=== PATIENT | male | born 1980 | race African-American/Black ===

== ENCOUNTER 2017-03-10 09:56 | Emergency (ER) | payer SELFPAY ==
[2017-03-10] MEDS ORDERED: Aspirin Low Dose CHEW TAB* 81 MG PO ONE (10:04)
[2017-03-10 10:34] LABS: Hematocrit 43 % (42-52); Hemoglobin 14.4 g/dl (14.0-18.0); Mean Corpuscular HGB Conc 33 g/dl (31-36); Mean Corpuscular Hemoglobin 30 pg (27-31); Mean Corpuscular Volume 90 fL (80-94); Mean Platelet Volume 8 um3 (7.4-10.4); Red Blood Count 4.83 10^6/ul (4.0-5.4); Red Cell Distribution Width 14 % (10.5-15); White Blood Count 10.9 10^3/ul (3.5-10.8)
--- NOTE | 2017-03-10 10:46 | ED ---
HPI Chest Pain - HPI Summary HPI Summary: Patient presents with left rib and flank pain that began last night. He is a heavy drinker and smoker and worries something is wrong with his "intestines". He had a GI bleed months ago and was treated for an ulcer with success by his PCP Dr. Calvo. He no longer has bloody stools. He is relatively pain free if he rests, but if he takes a deep breath, coughs or sits up from a supine position he feels the pain. He denies SOB, mike CP, WATSON, nausea, sweating or lightheadedness. He has not noticed blood in his urine or had urinary symptoms. - History of Current Complaint Chief Complaint: EDChestWallPain Time Seen by Provider: 03/10/17 10:04 Hx Obtained From: Patient Onset/Duration: Started Hours Ago, Atraumatic, Still Present Timing: Intermittent - when moving Initial Severity: Moderate Current Severity: Mild Pain Intensity: 2 Chest Pain Location: Left Lateral Chest Pain Radiates: No Character: Dull/Aching Aggravating Factor(s): Movement Alleviating Factor(s): Rest Associated Signs and Symptoms: Positive: Negative - Additional Pertinent History Primary Care Physician: [id number] - Allergy/Home Medications Allergies/Adverse Reactions: Allergies Allergy/AdvReac Type Severity Reaction Status Date / Time No Known Allergies Allergy Verified 10/13/13 12:12 PMH/Surg Hx/FS Hx/Imm Hx Endocrine/Hematology History: Denies: Hx Diabetes, Hx Thyroid Disease Cardiovascular History: Denies: Hx Hypertension Respiratory History: Denies: Hx Asthma, Hx Chronic Obstructive Pulmonary Disease (COPD) GI History: Denies: Hx Ulcer Psychiatric History: Reports: Hx of Violent Episodes Against Others, Hx Substance Abuse - alcohol Denies: Hx Eating Disorder Infectious Disease History: No Infectious Disease History: Denies: Hx Clostridium Difficile, Hx Hepatitis, Hx Human Immunodeficiency Virus (HIV), Hx of Known/Suspected MRSA, Hx Shingles, Hx Tuberculosis, Traveled Outside the [place] in Last 30 Days - Family History Known Family History: Positive: Hypertension, Other - Breast CA (mother) - Social History 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 Negative: Vomiting, Diarrhea, Nausea Positive: flank pain Positive: Myalgia All Other Systems Reviewed And Are Negative: Yes Physical Exam Triage Information Reviewed: Yes Vital Signs On Initial Exam: Initial Vitals Temp Pulse Resp BP Pulse Ox 97.4 F 98 20 159/109 98 03/10/17 09:58 03/10/17 09:58 03/10/17 09:58 03/10/17 09:58 03/10/17 09:58 Vital Signs Reviewed: Yes Appearance: Positive: Well-Appearing, No Pain Distress, Obese Skin: Positive: Warm, Skin Color Reflects Adequate Perfusion, Dry, Soft Head/Face: Positive: Normal Head/Face Inspection Eyes: Positive: EOMI, CINDY, Conjunctiva Clear ENT: Positive: Hearing grossly normal Neck: Positive: Supple, Nontender, No Lymphadenopathy Respiratory/Lung Sounds: Positive: Clear to Auscultation, Breath Sounds Present Cardiovascular: Positive: RRR, Pulses are Symmetrical in both Upper and Lower Extremities Abdomen Description: Positive: Nontender - I can not recreate his pain with palpation, Soft. Negative: CVA Tenderness (R), CVA Tenderness (L), Distended, Guarding, McBurney's Point Tenderness, Peritoneal Signs, Pulsatile Mass Bowel Sounds: Positive: Present Musculoskeletal: Positive: Strength/ROM Intact. Negative: Edema Left, Edema Right Neurological: Positive: Sensory/Motor Intact, Alert, Oriented to Person Place, Time, NV Bundle Intact Distally, Normal Gait Psychiatric: Positive: Affect/Mood Appropriate AVPU Assessment: Alert - Hero Coma Scale Coma Scale Total: 15 Diagnostics - Vital Signs Vital Signs Temp Pulse Resp BP Pulse Ox 03/10/17 10:01 97.8 F 97 20 159/109 96 03/10/17 09:58 97.4 F 98 20 159/109 98 - Laboratory Lab Results: Lab Results 03/10/17 Range/Units 10:25 WBC 10.9 H (3.5-10.8) 10^3/ul RBC 4.83 (4.0-5.4) 10^6/ul Hgb 14.4 (14.0-18.0) g/dl Hct 43 (42-52) % MCV 90 (80-94) fL MCH 30 (27-31) pg MCHC 33 (31-36) g/dl RDW 14 (10.5-15) % Plt Count 277 (150-450) 10^3/ul MPV 8 (7.4-10.4) um3 Neut % (Auto) 67.3 (38-83) % Lymph % (Auto) 25.1 (25-47) % Mcdowell % (Auto) 4.6 (1-9) % Eos % (Auto) 1.7 (0-6) % Baso % (Auto) 1.3 (0-2) % Absolute Neuts (auto) 7.4 (1.5-7.7) 10^3/ul Absolute Lymphs (auto) 2.7 (1.0-4.8) 10^3/ul Absolute Monos (auto) 0.5 (0-0.8) 10^3/ul Absolute Eos (auto) 0.2 (0-0.6) 10^3/ul Absolute Basos (auto) 0.1 (0-0.2) 10^3/ul Absolute Nucleated RBC 0.01 10^3/ul Nucleated RBC % 0.1 Result Diagrams: 03/10/17 10:25 03/10/17 10:25 Lab Statement: Any lab studies that have been ordered have been reviewed, and results considered in the medical decision making process. - Radiology No standard instances Xray Interpretation: No Acute Changes Radiology Interpretation Completed By: Radiologist - EKG No standard instances Cardiac Rate: NL EKG Rhythm: Sinus Rhythm ST Segment: Normal Ectopy: None Chest Pain Course/Dx - Chest Pain Differential Diagnosis/HQI/PQRI: Acute PR, Angina, Aortic Aneurysm, CHF, Chest Wall, Lower Respiratory Infection - Diagnoses Provider Diagnoses: Muscle strain of chest wall Discharge - Discharge Plan Condition: Stable Disposition: HOME Patient Education Materials: Muscle Strain (ED) Referrals: Lenin Calvo MD [Primary Care Provider] - Additional Instructions: Please call your PCP and follow-up in 2-4 days for re-evaluation. Use ibuprofen and rest to allow you to heal. Return to the emergency department if symptoms worsen.
[2017-03-10 10:50] LABS: BUN/Creatinine Ratio 11.1 (8-20); Calcium 8.7 mg/dL (8.6-10.3); EGFR African American 98.9 (>60); EGFR Non-African American 76.9 (>60); Globulin 2.7 g/dL (2-4); Magnesium 2.1 mg/dL (1.9-2.7); Total Bilirubin 0.4 mg/dL (0.2-1.0); Total Protein 6.7 g/dL (6.4-8.9)
--- NOTE | 2017-03-10 11:10 | RAD ---
INDICATION: Chest pain. COMPARISON: There are no prior studies available for comparison. TECHNIQUE: A portable view of the chest was obtained. FINDINGS: Cardiac and mediastinal contours appear to be within normal limits. The lungs are clear. No pleural effusion is seen. IMPRESSION: NO EVIDENCE FOR ACUTE DISEASE.
[2017-03-10 12:53] LABS: Urine Bilirubin Negative (Negative); Urine Glucose Negative (Negative); Urine Nitrite Negative (Negative)
[2017-03-10 13:08] VITALS: BP 156/104
== END 2017-03-10 13:08 | disposition home or self-care (01) ==
LOC: ED 09:56
DX: S29.011A Strain of muscle and tendon of front wall of thorax, initial encounter (principal); R10.84 Generalized abdominal pain; R07.81 Pleurodynia; F17.210 Nicotine dependence, cigarettes, uncomplicated; X58.XXXA Exposure to other specified factors, initial encounter; Y93.9 Activity, unspecified; Y92.9 Unspecified place or not applicable
CPT/HCPCS: 36415; 71010; 80053; 81003; 83605; 83735; 84484; 85025; 93005; 99283; A9270-GY

== ENCOUNTER 2021-03-07 12:12 | Inpatient (IN) ==
[2021-03-07 14:08] LABS: ABS Basophils 0.1 10^3/ul (0-0.2); ABS Lymphocytes 2.9 10^3/ul (1.0-4.8); ABS Monocytes 0.6 10^3/ul (0-0.8); Eosinophil % 0.4 %; Hematocrit 45 % (42-52); Hemoglobin 15.3 g/dL (14.0-18.0); Lymphocyte % 27.4 %; Mean Corpuscular HGB Conc 34 g/dL (31-36); Mean Corpuscular Hemoglobin 31 pg (27-31); Mean Corpuscular Volume 91 fL (80-94); Platelet Count 318 10^3/uL (150-450); Red Blood Count 4.96 10^6 /uL (4.18-5.48); Red Cell Distribution Width 14 % (10-15); White Blood Count 10.7 10^3/uL (3.5-10.8)
[2021-03-07 14:14] LABS: Urine Benzodiazepine Screen None Detected (None Detect); Urine Cannabinoids Screen Presumptive Positive (None Detect); Urine Opiates Screen None Detected (None Detect)
[2021-03-07 14:24] LABS: ALT 20 U/L (7-52); AST 23 U/L (13-39); Albumin 4.6 g/dL (3.2-5.2); Albumin/Globulin Ratio 1.4 (1-3); Alkaline Phosphatase 84 U/L (35-149); Anion Gap 9 mmol/L (2-11); Blood Urea Nitrogen 15 mg/dL (6-24); CO2 Carbon Dioxide 22 mmol/L (22-32); Calcium 9.4 mg/dL (8.6-10.3); Chloride 103 mmol/L (101-111); EGFR Non-African American 69.4 (>60); Globulin 3.2 g/dL (2-4); Glucose 93 mg/dL (70-100); Potassium 4.3 mmol/L (3.5-5.0); Sodium 134 mmol/L (135-145); Total Protein 7.8 g/dL (6.4-8.9)
[2021-03-07 14:53] LABS: Acetaminophen < 15 mcg/mL; Alcohol, S 17 mg/dL (<10); Salicylate < 2.50 mg/dL (<30)
[2021-03-07 15:02] LABS: TSH Ultra Thyroid Stim Horm 1.57 mcIU/mL (0.34-5.60)
[2021-03-07 16:30] LABS: Valproic Acid < 13.0 mcg/mL (50-100)
[2021-03-07] MEDS ORDERED: Al Hydrox/Mg Hydrox/Simet LIQ 30 ML UDC PO PRN (20:53)
[2021-03-07] MEDS ORDERED: chlorproMAZINE TAB* 50 MG PO PRN (21:04)
[2021-03-07] MEDS ORDERED: Nicotine GUM 2MG FRUIT FLAVOR PO PRN (22:00)
[2021-03-07] MEDS: Nicotine PATCH 7 MG/24 HR PATCH TRANSDERM SCH (22:17)
[2021-03-08] MEDS: Vitamin THERAPEUTIC TAB PO SCH (08:14)
[2021-03-08] MEDS: Nicotine PATCH 7 MG/24 HR PATCH TRANSDERM SCH (08:14)
[2021-03-08 11:13] LABS: Urine Benzodiazepine Screen None Detected (None Detect); Urine Cannabinoids Screen Presumptive Positive (None Detect); Urine Opiates Screen None Detected (None Detect)
[2021-03-09 07:52] LABS: HDL Cholesterol 43.6 mg/dL
[2021-03-09 08:15] VITALS: BP 134/91
[2021-03-09] MEDS: Vitamin THERAPEUTIC TAB PO SCH (09:32)
[2021-03-09] MEDS: Nicotine PATCH 7 MG/24 HR PATCH TRANSDERM SCH (09:32)
== END 2021-03-09 16:11 | disposition home or self-care (01) ==
LOC: ED 12:12 → BSU 21:44
PROVIDERS: ADMIT Psychiatry & Neurology Addiction Psychiatry; ATTEND Psychiatry & Neurology Addiction Psychiatry